=== PATIENT | female | born 1950 | race Caucasian/White ===

== ENCOUNTER → 2017-09-23 16:54 | Outpatient (CLI) | payer MEDICARE, OTHER, SELFPAY ==
[2017-09-23 17:18] LABS: Bacteria Urine None Seen
[2017-09-23 17:48] LABS: Appearance Urine UA CLOUDY; Bilirubin Urine UA 1+ (NEGATIVE); Color Urine UA YELLOW; Glucose Urine UA NEGATIVE (Normal); Ketones Urine UA 1+ (NEGATIVE); Leukocyte Esterase Urine UA 2+ (NEGATIVE); Nitrite Urine UA Negative (Negative); Occult Blood Urine UA TRACE-LYSED (Negative); Protein Urine UA TRACE (Negative); Specific Gravity Urine UA 1.025 (1.000-1.035); Urobilinogen Urine UA 0.2 E.U./dL (0.2)
[2017-09-23 18:01] LABS: Culture Indicated Urine Specimen Cultured; RBC Urine 1-5/HPF (0-5/HPF); WBC Urine 10-30/HPF (0-5/HPF)
[2017-09-23 18:05] LABS: Ictotest Urine Negative (Negative)
== END ==
PROVIDERS: Family Provider Family Medicine; PCP Family Medicine; Visit Provider Family Medicine
DX: R30.0 Dysuria (principal)
CPT/HCPCS: 81001; 87077; 87086; 87186

== ENCOUNTER → 2017-11-24 13:51 | Outpatient (CLI) | payer MEDICARE, OTHER, SELFPAY ==
[2017-11-24 13:55] LABS: RBC Urine None Seen (0-5/HPF)
[2017-11-24 14:18] LABS: Bilirubin Urine UA NEGATIVE (NEGATIVE); Color Urine UA YELLOW; Glucose Urine UA NEGATIVE (Normal); Ketones Urine UA NEGATIVE (NEGATIVE); Leukocyte Esterase Urine UA 1+ (NEGATIVE); Nitrite Urine UA Negative (Negative); Occult Blood Urine UA NEGATIVE (Negative); Protein Urine UA NEGATIVE (Negative); Specific Gravity Urine UA 1.025 (1.000-1.035); Urobilinogen Urine UA 0.2 E.U./dL (0.2)
[2017-11-24 14:30] LABS: Appearance Urine UA SL CLOUDY
[2017-11-24 14:31] LABS: Squamous Epithelial Cell Urine 0-1 /HPF; WBC Urine 10-30/HPF (0-5/HPF)
[2017-11-24 14:32] LABS: Bacteria Urine Many (>30); Culture Indicated Urine Specimen Cultured
== END ==
PROVIDERS: Family Provider Family Medicine; PCP Family Medicine; Visit Provider Family Medicine
DX: R30.9 Painful micturition, unspecified (principal)
CPT/HCPCS: 81001; 87077; 87086

== ENCOUNTER 2017-12-14 08:22 | Day surgery (SDC) | payer MEDICARE, OTHER, SELFPAY ==
[2017-12-14 09:21] VITALS: BP 137/77; PULSE 74; RESP 16; TEMP 36.3; O2SAT 98; BMI 23.3
--- NOTE | 2017-12-14 10:14 | PM.PREOP ---
Pre-operative Note Interval Note Changes: No
--- NOTE | 2017-12-14 10:15 | P.OP.PRE_ITS ---
Pre-operative Note Interval Note Changes: No
--- NOTE | 2017-12-14 10:16 | PM.OP.1 ---
Operative Date/Time/Diagnoses Pre-op diagnosis: Dermatochalasis of both upper lids Post-op diagnosis: same Procedure & Clinicians Procedure: Blepharoplasty upper lids both eyes Same procedure as scheduled: Yes Surgeon: Chandrakant Ortega Anesthesia Type: MAC +/- Operative Notes Findings: The patient was brought to the operating suite. A marking pen and calipers were used to rosales the excess skin in both upper lids. The patient underwent sedation. 5cc of a mixture of 1%lidocaine 0.5% marcaine and vitrease was injected into each upper lid. The patient was prepped and draped in a sterile manor. A 15 blade was used to cut the skin/orbicularis layer in the marked area of the right upper lid. [place] scissors were used to remove this. Bleeding was controlled with cautery. The orbital fat was allowed to prolapse and this was excised and more bleeding was controlled with cautery. 6-0 Polysorb suture was used to close the incision. The same procedure was performed on the left eye. Maxitrol ointment was placed in the eye and on the incision. The patient left the operating suite in excellent condition. Condition: stable Disposition: same day surgery
[2017-12-14] MEDS: NEOMYCIN/POLY/DEX OPHTH OINT 1 APPLIC EYE-BOTH (10:32)
[2017-12-14] MEDS: TETRACAINE 0.5% OPHTH DROPS 15 ML 2 DROPS EYE-BOTH (10:33)
[2017-12-14] MEDS: BUPIVACAINE 0.5% (PF) 5 ML, LIDOCAINE 1% W/EPI 5 ML, HYALURONIDASE 150 UNIT INJ (10:34)
[2017-12-14 11:07] VITALS: BP 139/66; PULSE 71; RESP 16; TEMP 36.6; O2SAT 98
[2017-12-14 11:22] VITALS: BP 146/81; PULSE 64; RESP 18; O2SAT 99
--- NOTE | 2017-12-14 11:29 | SUR.PHASEII ---
pt awake and alert. denies any complaints. pt has d\c instructions . states she is ready to go home.
== END 2017-12-14 11:30 ==
LOC: OR 08:24
PROVIDERS: Family Provider Family Medicine; PCP Family Medicine; Visit Provider Ophthalmology
PROC: (CPT 15823; principal; 2017-12-14 10:15)
DX: H02.834 Dermatochalasis of left upper eyelid (principal); H02.831 Dermatochalasis of right upper eyelid
CPT/HCPCS: 15823; J2250; J2704; J3010; J3470

== ENCOUNTER → 2017-12-21 09:26 | Outpatient (CLI) | payer MEDICARE, OTHER, SELFPAY ==
[2017-12-21 09:39] LABS: RBC Urine None Seen (0-5/HPF)
[2017-12-21 10:17] LABS: Appearance Urine UA CLEAR; Bilirubin Urine UA NEGATIVE (NEGATIVE); Color Urine UA YELLOW; Glucose Urine UA NEGATIVE (Normal); Ketones Urine UA NEGATIVE (NEGATIVE); Leukocyte Esterase Urine UA TRACE (NEGATIVE); Nitrite Urine UA Negative (Negative); Occult Blood Urine UA NEGATIVE (Negative); Protein Urine UA NEGATIVE (Negative); Urobilinogen Urine UA 0.2 E.U./dL (0.2); pH Urine UA 7.5 (4.5-8.0)
[2017-12-21 10:38] LABS: Bacteria Urine Occasional (0-1); Culture Indicated Urine Specimen Cultured; WBC Urine 0-1/HPF (0-5/HPF)
== END ==
PROVIDERS: Internal Medicine; PCP Family Medicine; Visit Provider Family Medicine
DX: N39.0 Urinary tract infection, site not specified (principal)
CPT/HCPCS: 81001; 87077; 87086; 87186

== ENCOUNTER → 2017-12-31 10:59 | Outpatient (CLI) | payer MEDICARE, OTHER, SELFPAY ==
[2017-12-31 11:05] LABS: Bacteria Urine None Seen; RBC Urine None Seen (0-5/HPF); WBC Urine None Seen (0-5/HPF)
[2017-12-31 11:17] LABS: Appearance Urine UA CLEAR; Bilirubin Urine UA NEGATIVE (NEGATIVE); Color Urine UA YELLOW; Glucose Urine UA NEGATIVE (Normal); Ketones Urine UA TRACE (NEGATIVE); Leukocyte Esterase Urine UA NEGATIVE (NEGATIVE); Nitrite Urine UA Negative (Negative); Occult Blood Urine UA NEGATIVE (Negative); Protein Urine UA NEGATIVE (Negative); Specific Gravity Urine UA 1.025 (1.000-1.035); Urobilinogen Urine UA 0.2 E.U./dL (0.2)
[2017-12-31 11:22] LABS: Culture Indicated Urine Cult Not Indicated; Mucus Urine 1+ (Negative); Squamous Epithelial Cell Urine 1-5 /HPF
== END ==
PROVIDERS: Family Provider Family Medicine; PCP Family Medicine; Visit Provider Internal Medicine
DX: Z87.440 Personal history of urinary (tract) infections (principal)
CPT/HCPCS: 81001

== ENCOUNTER → 2018-03-10 13:36 | Outpatient (CLI) | payer MEDICARE, OTHER, SELFPAY ==
[2018-03-12 15:19] LABS: Fecal Immunochemical Test NOT DETECTED
== END ==
PROVIDERS: Family Provider Family Medicine; PCP Family Medicine; Visit Provider Family Medicine
DX: Z12.11 Encounter for screening for malignant neoplasm of colon (principal)
CPT/HCPCS: 82274

== ENCOUNTER → 2018-10-20 12:36 | Outpatient (CLI) | payer MEDICARE, OTHER, SELFPAY ==
--- NOTE | 2018-10-20 12:39 | DI.RAD.S_ITS ---
PROCEDURE: XR SHOULDER LT MIN 2V INDICATIONS: Rotator cuff injury TECHNIQUE: 3 views of the shoulder were acquired. COMPARISON: None. FINDINGS: Bones: No fractures or dislocations. No suspicious bony lesions. Visualized ribs appear intact. Soft tissues: No suspicious soft tissue calcifications. IMPRESSION: No trauma found. Mild osteoarthritic change at the a.c. joint. Dictated by: Byron Huerta M.D. on 10/20/2018 at 13:23 Approved by: Byron Huerta M.D. on 10/20/2018 at 13:24
== END ==
PROVIDERS: PCP Family Medicine; Visit Provider Family Medicine
DX: S46.002A Unspecified injury of muscle(s) and tendon(s) of the rotator cuff of left shoulder, initial encounter (principal); M75.82 Other shoulder lesions, left shoulder; X58.XXXA Exposure to other specified factors, initial encounter
CPT/HCPCS: 73030

== ENCOUNTER → 2023-03-24 14:40 | Outpatient (CLI) | payer MEDICARE, SELFPAY ==
[2023-03-24 15:54] LABS: Hemoglobin A1C% w Est Avg Glu 5.1 % (4.0-6.0)
[2023-03-24 15:56] LABS: Cholesterol 236 mg/dL (140-199); Triglycerides 74 mg/dL (35-150)
[2023-03-24 16:05] LABS: HDL Cholesterol 124 mg/dL (40-60); LDL Cholesterol Calculated 97 mg/dL (<100)
== END ==
PROVIDERS: PCP Family Medicine; Referring Provider Family Medicine; Visit Provider Family Medicine
DX: Z13.1 Encounter for screening for diabetes mellitus (principal); Z13.220 Encounter for screening for lipoid disorders
CPT/HCPCS: 36415; 80061; 83036

== ENCOUNTER → 2023-09-02 13:12 | Outpatient (CLI) | payer MEDICARE, SELFPAY ==
--- NOTE | 2023-09-02 13:15 | DI.MG.S_ITS ---
BILATERAL DIGITAL SCREENING MAMMOGRAM 3D/2D WITH CAD: 09/02/2023 CLINICAL: Routine screening. Comparison is made to exam dated: 12/31/2016 mammogram - [facility]. Both breasts are heterogeneously dense, which may obscure small masses (category c / 51-75% glandular tissue). Current study was also evaluated with a Computer Aided Detection (CAD) system. No significant masses, calcifications, or other findings are seen in either breast. There has been no significant interval change. IMPRESSION: NEGATIVE There is no mammographic evidence of malignancy. A 1 year screening mammogram is recommended. Based on the Tyrer Cuzick model (a risk assessment model) the patient's lifetime risk is 6.4% and her 10 year risk is 4.8%. According to the ACR, ACS, and NCCN guidelines, an annual breast MRI exam along with mammogram is recommended if the patient's lifetime risk is 20% or greater. This exam was interpreted at Station ID: [id number]. NOTE: For mammograms, a report in lay terms will be sent to the patient. Approximately 15% of breast malignancies will not be visualized mammographically. In the management of a palpable breast mass, a negative mammogram must not discourage biopsy of a clinically suspicious lesion. Electronically Signed By: Luis abraham/billie:09/02/2023 16:25:44 letter sent: Normal Exam ACR BI-RADS Category 1: Negative [id number]
== END ==
PROVIDERS: PCP Family Medicine; Referring Provider Family Medicine; Visit Provider Family Medicine
DX: Z12.31 Encounter for screening mammogram for malignant neoplasm of breast (principal); R92.333 Mammographic heterogeneous density, bilateral breasts
CPT/HCPCS: 77063; 77067

== ENCOUNTER → 2024-09-23 10:11 | Outpatient (CLI) | payer MEDICARE, SELFPAY ==
[2024-09-23 12:14] LABS: Clostridium Difficile Tox PCR Negative for C. diff (Negative)
== END ==
PROVIDERS: PCP Family Medicine; Referring Provider Family Medicine; Visit Provider Family Medicine
DX: K52.9 Noninfective gastroenteritis and colitis, unspecified (principal)
CPT/HCPCS: 36415; 82274; 83516; 87177; 87493

== ENCOUNTER → 2024-11-28 12:53 | Outpatient (CLI) | payer MEDICARE, SELFPAY ==
--- NOTE | 2024-11-28 12:56 | DI.RAD.S_ITS ---
PROCEDURE: XR DEXA AXIAL SKELETON INDICATIONS: screening COMPARISON: [facility], , DEXA AXIAL SKELETON, 12/31/2016, 10:32. FINDINGS: Lumbar Spine: Bone mineral density 0.805 (previously 0.950) g/cm2, T score -1.9 (previously -1.9). Left Femoral Neck: Bone mineral density 0.652 (previously 0.805) g/cm2, T score -1.8 (previously -1.7). Left Hip: Bone mineral density 0.799 (previously 0.862) g/cm2, T score -1.2 (previously -1.2). Fracture Risk Calculation (when applicable): 10-year fracture risk of a major osteoporotic fracture 11 percent and of a hip fracture 2.3 percent. (T score greater or equal to -1.0 to: NORMAL) (T score from -1.1 to -2.4: OSTEOPENIA) (T score less than or equal to -2.5: OSTEOPOROSIS) IMPRESSION: Osteopenia--- recommend repeat DEXA in 2-3 years for reassessment. Follow-up guidelines as follows: Osteoporosis: Consider a repeat DEXA and Vertebral Fracture Assessment (VFA) exam in 2 years or sooner if medically necessary, to reassess this patient's status. Osteopenia: Consider a repeat DEXA in 2-3 years to reassess this patient's status, or if there is a new clinical indication. Normal: Consider a repeat DEXA in 5 years or sooner, or if there is a new clinical indication. All treatment decisions require clinical judgment and consideration of individual patient factors, including patient preferences, comorbidities, previous drug use, risk factors not captured in the FRAX model (e.g., frailty, falls, vitamin D deficiency, increased bone turnover, interval significant decline in bone density ) and possible under- or over-estimation of fracture risk by FRAX. In addition, the NOF Guide recommends that FDA-approved medical therapies be considered in postmenopausal women and men age >= 50 years with a: * Hip or vertebral (clinical or morphometric) fracture * T-score of <=-2.5 at the spine or hip * Ten-year fracture probability by FRAX of >= 3% for hip fracture or >=20% for major osteoporotic fracture. Dictated by: Zeeshan Willams M.D. on 11/28/2024 at 19:49 Approved by: Zeeshan Willams M.D. on 11/28/2024 at 19:52
--- NOTE | 2024-11-28 12:56 | DI.MG.S_ITS ---
MM screening mammo BI: 11/28/2024. BI-RADS: 1 CLINICAL: 74-year old female for bilateral screening mammogram. Tyrer-Cuzick lifetime risk of 3.9%. No personal or first-degree family history of breast cancer. PRIOR EXAMS 09/02/2023, 12/31/2016. MAMMOGRAPHY TECHNIQUE: 2D and 3D (tomosynthesis) digital mammographic views obtained, with additional images as needed for full coverage. Current study was also evaluated with a Computer Aided Detection (CAD) system. DENSITY C. The breasts are heterogeneously dense, which may obscure small masses. MAMMOGRAPHY FINDINGS Bilateral: No suspicious mass, asymmetry, microcalcification, or other abnormality seen. IMPRESSION: * No evidence of malignancy. RECOMMENDATIONS Bilateral * Annual screening mammography. OVERALL ASSESSMENT CATEGORY BI-RADS-1: Negative. The [employer] recommends annual screening mammography beginning at age 40 for women with average risk of breast cancer. ELECTRONICALLY SIGNED: Concepción Zavaleta M.D. on 11/28/2024 at 07:20:37 PM PT Interpreting Station ID: [id number]
== END ==
LOC: MAMMO 12:54
PROVIDERS: PCP Family Medicine; Referring Provider Family Medicine; Visit Provider Family Medicine
DX: Z12.31 Encounter for screening mammogram for malignant neoplasm of breast (principal); M85.89 Other specified disorders of bone density and structure, multiple sites; R92.333 Mammographic heterogeneous density, bilateral breasts
CPT/HCPCS: 77063; 77067; 77080